=== PATIENT | male | born 1970 | race Native Hawaiian/Other Pacific Islander ===

== ENCOUNTER 2017-01-14 08:32 | Emergency (ER) | payer OTHER ==
[~2017-01-14] VITALS: Ht 167.6 cm; Wt 65.0 kg
[2017-01-14 08:34] VITALS: BP 134/74; PULSE 81; RESP 15; TEMP 97.8; O2SAT 99
[2017-01-14] MEDS ORDERED: PRIL20CA9 PO ×2 (09:09→09:14)
[2017-01-14] MEDS ORDERED: RANI150T PO ×2 (09:09→09:14)
--- NOTE | 2017-01-14 09:09 | PD ---
HPI Chief Complaint: Abdominal Pain Time Seen by Provider: 09:00 Travel History International Travel<30 days: No Contact w/Intl Traveler<30days: No Traveled to known affect area: No History of Present Illness HPI This is a 46-year-old male who presents to the emergency department reporting several days of epigastric fullness, bloating and gas, constant, moderate severity associated with no vomiting, diarrhea, fevers or chills. He says he has been diagnosed with peptic ulcers in the past and had an endoscopy 5 years ago. In September he was placed on ranitidine and omeprazole and that was helping his symptoms but he ran out and for 2 months hasn't been on any medicine. He does smoke cigarettes. He does say he has had some weight loss. History is somewhat limited due to the patient's language barrier. 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 [facility] Past Medical History Diminished Hearing: No Tetanus Vaccination: Unknown Influenza Vaccination: No Social History Alcohol Use: No Tobacco Use: Yes Substance Use: No Allergies-Medications (Allergen,Severity, Reaction): Coded Allergies: No Known Allergies (Unverified , 01/14/17) Review of Systems Except as stated in HPI: all other systems reviewed are Neg Physical Exam Narrative GENERAL: Thin male in no acute distress SKIN: Focused skin assessment warm and dry. HEAD: Atraumatic. Normocephalic. EYES: Pupils equal and round. No injection or drainage. ENT: Moist mucous membranes NECK: Trachea midline. CARDIOVASCULAR: Regular rate and rhythm. No murmur appreciated. RESPIRATORY: Clear to auscultation. Breath sounds equal bilaterally. GASTROINTESTINAL: Abdomen soft, non-tender, nondistended. MUSCULOSKELETAL: No obvious deformities. NEUROLOGICAL: Awake and alert. No obvious cranial nerve deficits. Moving all extremities. PSYCHIATRIC: Appropriate mood and affect; insight and judgment normal. Data Data Last Documented VS Vital Signs Date Time Temp Pulse Resp B/P Pulse Ox O2 Delivery O2 Flow Rate FiO2 01/14/17 08:34 97.8 81 15 134/74 99 MDM Medical Decision Making Medical Screen Exam Complete: Yes Emergency Medical Condition: Yes Interpretation(s) Afebrile, no tachycardia, normotensive Differential Diagnosis Gastritis, peptic ulcer disease, malignancy Narrative Course This is a 46-year-old male who presents to the emergency department with epigastric discomfort. He has a history of peptic ulcers so I suspect this is the same. Patient does appear quite thin and has had some weight loss. I did explain to him that he needs to follow up with the GI doctor for an endoscopy and that he could have cancer but we can't diagnose that in the emergency department. He did express understanding. I refilled his ranitidine and his omeprazole. Otherwise he appears quite well and I doubt a surgical or emergent etiology of his symptoms. Patient will be discharged home. Diagnosis Primary Impression: Gastritis Qualified Code: K29.50 - Chronic gastritis without bleeding, unspecified gastritis type Referrals: [facility] Patient Instructions: General Instructions Med/Other Pt SpecificInfo: Prescription(s) given Scripts Omeprazole (Prilosec)20 Mg Cap20 Mg PO DAILY #30 CAP Ref 0 Prov:Samra Mclean MD 01/14/17 Ranitidine 150 Mg Urh637 Mg PO BID #60 TAB Ref 0 Prov:Samra Mclean MD 01/14/17 Disposition: 01 DISCHARGE HOME Condition: Stable Samra Mclean MD Jan 14, 2017 09:09
[2017-01-14 09:28] VITALS: BP 131/72
== END 2017-01-14 09:49 | disposition home or self-care (01) ==
LOC: NEPD 08:32
DX: K29.50 Unspecified chronic gastritis without bleeding (principal); F17.210 Nicotine dependence, cigarettes, uncomplicated
CPT/HCPCS: 99283

== ENCOUNTER → 2017-02-18 | Outpatient (CLI) | payer OTHER ==
[~2017-02-18] MED LIST: PRIL20CA9 PO; RANI150T PO
--- NOTE | 2017-02-18 11:32 | RADRPT ---
EXAM DATE/TIME: 02/18/2017 10:26 [facility] COMPARISON: No previous studies available for comparison. INDICATIONS : Swelling left anterior ankle. MEDICAL HISTORY : Left ankle swelling. SURGICAL HISTORY : None. ENCOUNTER: Initial ACUITY: > 1 year PAIN SCORE: 0/10 LOCATION: Left ankle. AREA EVALUATED: Left ankle. FINDINGS: MASSES: None. FLUID COLLECTIONS: None. OTHER: Negative. CONCLUSION: Unremarkable focused ultrasound. Binu Santos MD on February 18, 2017 at 11:29 Board Certified Radiologist. This report was verified electronically.
--- NOTE | 2017-02-18 11:43 | RADRPT ---
EXAM DATE/TIME: 02/18/2017 09:57 [facility] COMPARISON: No previous studies available for comparison. INDICATIONS : Congestion, cough, short of breath for 3 days, smoker MEDICAL HISTORY : None. SURGICAL HISTORY : None. ENCOUNTER: Initial ACUITY: 3 days PAIN SCORE: 0/10 LOCATION: Bilateral chest FINDINGS: Frontal and lateral views of the chest demonstrate normal-sized cardiac silhouette. No pleural effusi on, airspace consolidation, or pneumothorax is visualized. There is mild symmetric biapical scar. Bon es and soft tissues demonstrate no acute finding. CONCLUSION: No acute cardiopulmonary abnormality is identified. Clemente Ashley MD on February 18, 2017 at 11:41 Board Certified Radiologist. This report was verified electronically.
== END ==
LOC: CLAB 09:29
DX: M71.372 Other bursal cyst, left ankle and foot (principal); Z20.1 Contact with and (suspected) exposure to tuberculosis
CPT/HCPCS: 71020; 76999